=== PATIENT | male | born 1995 | race American Indian/Alaskan Native ===

== ENCOUNTER 2021-10-23 18:52 | Emergency (ER) | payer SELFPAY | END 2021-10-23 19:15 | disposition left against medical advice (07) | LOC: ED 18:52 | DX: T78.40XA Allergy, unspecified, initial encounter (principal); R50.9 Fever, unspecified; Z53.21 Procedure and treatment not carried out due to patient leaving prior to being seen by health care provider; X58.XXXA Exposure to other specified factors, initial encounter ==